=== PATIENT | male | born 1990 | race Caucasian/White ===

== ENCOUNTER 2024-05-18 10:29 | Emergency (ER) | payer OTHER, SELFPAY ==
[2024-05-18 10:31] VITALS: BP 115/98
--- NOTE | 2024-05-18 10:55 | ED.GENMED ---
History of Present Illness
General
Chief Complaint: Rectal Bleeding
Source: patient
Exam Limitations: none
Time Seen by Provider: 05/18/24 10:45
History of Present Illness
History of Present Illness:
See MDM
Past History
Past History
ED Past Medical History: Seizures, Psychiatric (ADD, Bipolar) and Other (migraines)
ED Past Surgical History: None
Social History
Tobacco: Smoker
Alcohol: Occasional
Drug: Other (unclear)
Personal: Single
Living: with family
Employment: Employed
Family History
Family History: Unable to obtain
Phy Exam
Physical Exam
Physical Exam:
See MDM
Course
Orders/Labs/Results
Orders:
Orders
05/18/24 10:54
CT Abd/pel W Iv And Oral Contr Urgent
Comment:
Reason For Exam: intermittent left lower abd pain
Iohexol [Omnipaque] See Protocol PO NOW STA
05/18/24 11:15
Complete Blood Count/With Diff Urgent
Comprehensive Metabolic Panel Urgent
Lipase Urgent
Abnormal Lab Results
05/18/24
11:15
Plt Count 404 H 10^3/uL
(130-400)
Absolute Monos (auto) 1.2 H 10^3/uL
(0.1-0.6)
Lymphocytes % 17.3 L %
(20.5-51.1)
Monocytes % 12.3 H %
(1.7-9.3)
Glucose 103 H mg/dl
(70-99)
05/18/24 11:15
05/18/24 11:15
Vital Signs
Initial and Last Documented VS:
Initial Vital Signs
Temp Pulse Resp BP Pulse Ox
98.1 F 90 18 115/98 98
05/18/24 10:31 05/18/24 10:31 05/18/24 10:31 05/18/24 10:31 05/18/24 10:31
Last Documented Vital Signs
Temp Pulse Resp BP Pulse Ox
98.1 F 76 18 115/98 97
05/18/24 10:31 05/18/24 13:48 05/18/24 10:31 05/18/24 10:31 05/18/24 13:48
MDM/Problems Addressed
Differential Diagnosis Includes:
HPI and MDM Narrative:
33-year-old male presenting for evaluation of intermittent abdominal pain for the past 2 months. Patient states it feels like gas pain. However, the pain was unbearable last night. He went to urgent care today. He was sent to the emergency
department because his brown stool was Hemoccult positive. Patient is unconcerned about the color of his stool. Patient has followed up with his primary care doctor and was placed on medicine to treat possible gastritis. Patient has not followed
up with GI. Given his ongoing pain which appears localized to left lower quadrant, will obtain CT
Physical exam
General: Well appearing and non-toxic
HEENT: protecting airway. Mildly dry mucous membrane
Neck: appears supple
CV: No evidence of cyanosis
Resp: No accessory muscle use
Abd: Non-distended. Mild tenderness left lower quadrant without localized rebound
Extremities: No deformities
Neuro: alert
Psych: Normal affect
Skin: Intact
Problems Addressed including Acute and Chronic Conditions affecting care:
1. Abdominal pain
Acuity: acute
Prognosis: stable
Details: Will obtain CT to rule out any evidence of diverticulitis versus colitis
Updates
Blood work without clinical significance. CT concerning for possible inflammatory bowel disease. GI front office made aware and they will expedite follow-up.
Differential Diagnosis (but not limited to): Colitis, diverticulitis
Testing considered: Urinalysis but he denies urinary symptoms
Drug therapy (if applicable): OTC meds, please see d/c instruction regarding Rx drugs
Amount and/or Complexity of Data Reviewed
Clinical info obtained from: Patient
External data reviewed: N/A
Labs I independently reviewed (but not limited to): White blood cell count normal
Radiology: The CT scan was personally and independently reviewed. In addition, official CT report reviewed.
Pulse Ox: not hypoxic
EKG independently reviewed: N/A
Dental Instrument Maker: N/A
Critical Care: N/A
Risk of Complication:
Social Determinants of health: Good social support
Discussed with other providers: N/A
Escalation of Care includes Admit/Obs: After being observed in the Emergency Department, pt stable for discharge.
Occasional wrong word or 'sound a like' substitutions may have occurred due to the inherent limitations of voice recognition software. Read the chart carefully and recognize, using context, where substitutions have occurred.
*Critical Care Note
Total Time (30-74mins, 75-104mins- exclusive of procedures): Not Applicable
ED Attending Note
-
Portions of this chart may have been created with voice recognition software.� Occasional wrong word or��sound alike� substitutions may have occurred due to the inherent limitations of voice recognition software.
Discharge Plan
Departure
Patient Disposition: Home (Routine Discharge)
Date of Disposition: 05/18/24
Time of Disposition: 14:48
Patient with high blood pressure during this ER visit?: No
Discharge Problem:
Abdominal pain
Prescriptions:
No Action
omeprazole 20 mg Capsule,Delayed Release(Dr/Ec)
20 mg PO DAILYPRN PRN (Reason: gerd)
Excedrin Migraine 250-250-65 mg Tablet
2 tab PO DAILYPRN PRN (Reason: mirgraines)
rizatriptan 5 mg Tablet
0 mg PO .COMPLEX
Rx Instructions:
take 1 tablet at onset of headache; if no relief, may repeat 1 tablet after at least 2 hrs
Referrals:
Tang Serra MD [Family Provider] -
Sagar Suárez MD [Active] -
Activity Restrictions/Additional Instructions:
Please return for any worsening symptoms.
You may return at any time if you have further concerns.
You were placed on the GI callback tracker. Someone from their office should call you in the next few days. If you do not hear from them in the next few days, please give them a call.
Thank you for choosing [facility].
Interventions
Interventions:
*Risk Screen - Suicide Last Done: 05/18/24 10:31
*General Assessment Last Done: 05/18/24 10:31
*Neglect/Abuse Screening Last Done: 05/18/24 10:31
*ED COVID-19 Vaccine History Last Done: 05/18/24 10:31
XY-Cigbek-Htceyejbxz Assessment Last Done: 05/18/24 13:49
ED- Pulmonary Assessment Last Done: 05/18/24 13:38
Discharge Date and Time
Print Language: SPANISH
[2024-05-18 11:07] VITALS: BMI 20.5
[2024-05-18] MEDS: OMNIPAQUE 50 ML PO (11:08)
[2024-05-18 11:22] LABS: % Basophils 0.9 % (0-2); % Eosinophils 3.1 % (0-6); % Immature Granulocytes 0.4 % (0-0.5); % Lymphocytes 17.3 % (20.5-51.1); % Monocytes 12.3 % (1.7-9.3); Absolute Basophils 0.1 10^3/uL (0-0.2); Absolute Eosinophils 0.3 10^3/uL (0-0.7); Absolute Lymphocytes 1.7 10^3/uL (1.2-3.4); Absolute Monocytes 1.2 10^3/uL (0.1-0.6); Absolute Neutrophils 6.5 10^3/uL (1.4-6.5); Hematocrit 41.9 % (39.0-52.0); Hemoglobin 14.6 g/dL (13.0-18.0); Mean Corp Hgb Conc. 34.8 g/dL (33.0-37.0); Mean Corpuscular Volume 83.1 fL (80.0-94.0); Mean Platelet Volume 7.8 fL (7.4-10.4); Nucleated Red Blood Cells % 0 % (-); Platelet Count 404 10^3/uL (130-400); Red Blood Cell Count 5.04 10^6/uL (4.70-6.10); Red Cell Dist. Width 12.2 % (11.5-14.5); White Blood Cell Count 9.8 10^3/uL (4.8-10.8)
[2024-05-18 11:36] LABS: ALT (SGPT) 12 U/L (0-50); AST (SGOT) 18 U/L (17-59); Albumin 4.3 g/dl (3.5-5.0); Alkaline Phosphatase 57 U/L (38-126); Blood Urea Nitrogen 12 mg/dl (9-20); Calcium 9.1 mg/dl (8.4-10.2); Carbon Dioxide 29 mmol/L (22-30); Chloride 100 mmol/L (98-107); Estimated Creatinine Clearance > 125 ml/min; Glucose 103 mg/dl (70-99); Lipase 34 U/L (23-300); Potassium 4.2 mmol/L (3.5-5.1); Sodium 139 mmol/L (135-145); Total Bilirubin 0.5 mg/dl (0.2-1.3); Total Protein 6.9 g/dl (6.3-8.2); eGFR > 60.00
[2024-05-18 13:46] VITALS: BP 109/62
[2024-05-18 15:05] VITALS: BP 101/63
[2024-05-18 15:43] VITALS: BP 101/63
== END 2024-05-18 15:44 | disposition home or self-care (01) ==
LOC: EMR 10:29
PROVIDERS: EMERGENCY PHYSICIAN Student in an Organized Health Care Education/Training Program; FAMILY PHYSICIAN Internal Medicine
DX: R10.32 Left lower quadrant pain (principal); K62.5 Hemorrhage of anus and rectum; R56.9 Unspecified convulsions; F90.9 Attention-deficit hyperactivity disorder, unspecified type; F31.9 Bipolar disorder, unspecified; G43.909 Migraine, unspecified, not intractable, without status migrainosus; F17.200 Nicotine dependence, unspecified, uncomplicated
CPT/HCPCS: 99284; 74177; 80053; 83690; 85025; Q9967

== ENCOUNTER → 2024-05-30 06:15 | Day surgery (SDC) | payer OTHER, SELFPAY | LOC: GI 06:15 | PROVIDERS: ATTENDING PHYSICIAN Internal Medicine | DX: K52.9 Noninfective gastroenteritis and colitis, unspecified (principal); K62.89 Other specified diseases of anus and rectum; K63.89 Other specified diseases of intestine; K92.1 Melena; K51.90 Ulcerative colitis, unspecified, without complications | CPT/HCPCS: 45380; 88305 ==